=== PATIENT | female | born 1940 | race Hispanic/Latino ===

== ENCOUNTER → 2022-11-22 | Outpatient (CLI) | payer BC ==
[2022-11-22 16:38] LABS: ALBUMIN 3.1 g/dL (3.5-5.0); CREATININE 2.3 mg/dL (0.5-1.5); POTASSIUM 4.1 mmol/L (3.5-5.1); TOTAL PROTEIN, SERUM 6.9 g/dL (6.0-8.3)
== END | disposition home or self-care (01) ==
LOC: LAB 15:42
PROVIDERS: ATTEND Student in an Organized Health Care Education/Training Program
DX: I48.91 Unspecified atrial fibrillation (principal)
CPT/HCPCS: 36415; 80053

== ENCOUNTER → 2022-12-01 | Outpatient (CLI) | payer BC ==
[2022-12-01 11:35] LABS: CREATININE 2.1 mg/dL (0.5-1.5); POTASSIUM 3.7 mmol/L (3.5-5.1)
== END | disposition home or self-care (01) ==
LOC: LAB 08:40
PROVIDERS: ATTEND Student in an Organized Health Care Education/Training Program
DX: I10 Essential (primary) hypertension (principal)
CPT/HCPCS: 36415; 80048

== ENCOUNTER 2025-06-30 15:13 | Inpatient (IN) | payer BC ==
[~2025-06-30] VITALS: Ht 160 cm; Wt 61.2 kg
[2025-06-30 16:08] LABS: NUCLEATED RED BLOOD CELLS 0.0 % (0.0-0.19); PLATELET COUNT (AUTO) 157 K/uL (130-400); RED BLOOD CELL COUNT(AUTO) 2.24 MIL/uL (4.00-5.50); RED CELL DISTRIBUTION WIDTH 17.0 % (11.0-15.5); WHITE BLOOD COUNT (AUTO) 6.0 K/uL (4.8-10.8)
[2025-06-30 16:15] LABS: IMMATURE GRANULOCYTE ABSOLUTE 0.10 K/uL (0-1)
[2025-06-30 16:29] LABS: ASPARTATE AMINOTRANSFERASE 40.0 U/L (10-37); CREATININE 3.1 mg/dL (0.5-1.0); GLOMERULAR FILTR. RATE CALC 14.0 mL/min (>90); GLUCOSE,RANDOM 144.0 mg/dL (70-105); SODIUM SERUM 140.0 mmol/L (136-145); TOTAL PROTEIN, SERUM 6.5 g/dL (6.0-8.3); UREA NITROGEN, BLOOD 60.0 mg/dL (7-18)
[2025-06-30] MEDS: 0.9%NACL 1000ML 1,000 ML IV SCH (16:40)
[2025-06-30 16:44] LABS: BAND NEUTROPHILS % (MANUAL) 4 % (0-2); EOSINOPHILS % (MANUAL) 1 % (1-6); LYMPHOCYTES % (MANUAL) 11 % (22-44); MAN.DIFF COMMENT-IMPRESSION MANUAL DIFFERENTIAL; METAMYELOCYTES % 1 % (0-0); MONOCYTES % (MANUAL) 4 % (2-9); REACTIVE LYMPHOCYTES 3 % (0-0); SEGMENTED NEUTROPHILS % 76 % (40-70)
[2025-06-30] MEDS ORDERED: PoTASSium chl 10% ELIXIR 20MEQ 20 MEQ/15 ML UDCUP PO PRN (17:00)
--- NOTE | 2025-06-30 20:03 | HP ---
[facility] HISTORY & PHYSICAL Date Patient Seen: Jun 30, 2025 Time of Visit: 19:51 Supervising Physician: Dr. Semaj Pompa Primary Care Physician: Dr. Fiore Outpatient Specialists: [ ] Inpatient Consults: [ ] PROBLEM LIST: COVID positive, POA Community-acquired pneumonia, POA Hypertension, POA Chronic macrocytic anemia Hyperlipidemia, POA Acute kidney injury, POA Hypokalemia, POA DM type 2, with hyperglycemia POA History of left breast cancer PLAN: Admit to medical-surgical floor VS per unit protocol Start azithromycin Q 24 hours, continue ceftriaxone Treat fever aggressively DuoNeb q.6 Incentive spirometry Isolation precautions Avoid nephrotoxic agents Renally dose all medications Bilateral SCDs Obtain chest x-ray Check for COVID and flu Follow up culture results Keep SBP less than 160 Keep serum glucose less than 150 CBC, CMP, magnesium level daily HPI: 85-year-old female with past medical history of hypertension, pacemaker, CAD with angioplasty, hyperlipidemia, DM type 2 presented to ER [facility] here for evaluation of COVID pneumonia. Patient was seen and examined in ED with daughter present at bedside. Apparently patient has been feeling off and tired for the past several days. She initially pr esented to outside clinic where in she was advised to come to ED for further medical evaluation. In ED CBC was obtained and showed chronic macrocytic anemia, his chemistry significant for potassium level of 2.8, BUN of 60, and creatinine of 3.1. At present patient is currently hemodynamically stable, on room air with appropriate oxygen saturation, denies any headache, chest pain, fever, abdominal pain, diarrhea, or difficulty urinating. Patient is complaining of generalized body weakness and periodic cough. Patient denies any smoking, alcohol intake, or illicit drug use. At present patient is currently undergoing treatment for breast cancer. PAST MEDICAL HX: see above PAST SURGICAL HX: noncontributory SOCIAL HISTORY: No tobacco, ETOH, or illicit drug use Coded Allergies: No Known Allergies (Unverified Allergy, Unknown, 06/30/25) REVIEW OF SYSTEMS: 12 point ROS reviewed with patient. Pertinent positives mentioned above. Otherwise negative. PHYSICAL EXAM: GENERAL: alert, weak, awake oriented x 3 HEENT: EOMI, Sclera non icteric, moist mucosa NECK: Supple, no JVD, trachea midline LUNGS: Clear breath sounds bilaterally. No wheezes HEART: Regular rate and rhythm. Normal S1 and S2, without murmurs ABD: Abdomen soft, nontender. Bowel sounds present EXT: No clubbing cyanosis or edema NEURO: Alert and oriented to person, follows commands Vital Signs (last 8hr) Date Time Temp Pulse Resp B/P (MAP) Pulse Ox O2 Delivery O2 Flow Rate FiO2 06/30/25 18:17 99.5 67 18 129/52 99 Room Air* 0 21 06/30/25 16:05 99.0 66 18 128/52 98 Room Air* 0 21 06/30/25 15:17 99.0 84 16 117/62 99 Room Air 0 LABS: Hematology Labs: Test 06/30/25 16:00 Range/Units White Blood Count 6.0 4.8-10.8 K/uL Red Blood Count 2.24 L 4.00-5.50 MIL/uL Hemoglobin 9.4 L 12.0-16.0 g/dL Hematocrit 28.3 L 36-48 % Mean Corpuscular Volume 126.3 H 79-99 fL Mean Corpuscular Hemoglobin 42.0 H 27.0-33.0 pg Mean Corpuscular Hemoglobin Concent 33.2 32.0-36.0 g/dL Red Cell Distribution Width 17.0 H 11.0-15.5 % Platelet Count 157 130-400 K/uL Mean Platelet Volume 11.3 H 7.5-10.5 fL Immature Granulocyte % (Auto) 1.7 H 0-1 % Neutrophils (%) (Auto) 79.6 H 40.0-77.0 % Lymphocytes (%) (Auto) 12.4 L 21.0-51.0 % Monocytes (%) (Auto) 5.3 3.0-13.0 % Eosinophils (%) (Auto) 0.7 0.0-8.0 % Basophils (%) (Auto) 0.3 0.0-5.0 % Neutrophils # (Auto) 4.7 1.8-7.7 K/uL Lymphocytes # (Auto) 0.7 L 1.0-4.8 K/uL Monocytes # (Auto) 0.3 0.1-1.0 K/uL Eosinophils # (Auto) 0.04 0.00-0.70 K/uL Basophils # (Auto) 0.02 0.00-0.20 K/uL Absolute Immature Granulocyte (auto 0.10 0-1 K/uL Segmented Neutrophils % 76 H 40-70 % Band Neutrophils % 4 H 0-2 % Lymphocytes % (Manual) 11 L 22-44 % Monocytes % (Manual) 4 2-9 % Eosinophils % (Manual) 1 1-6 % Metamyelocytes % 1 H 0-0 % Nucleated Red Blood Cells 0.0 0.0-0.19 % Differential Comment MANUAL DIFFERENTIAL Reactive Lymphocytes 3 H 0-0 % White Cell Morphology Comment Platelet Morphology Comment Red Blood Cell Morphology See comments Chemistry Labs: Test 06/30/25 16:00 Range/Units Sodium Level 140 136-145 mmol/L Potassium Level 2.8 *L 3.5-5.1 mmol/L Chloride Level 101 101-111 mmol/L Carbon Dioxide Level 26 21-32 mmol/L Blood Urea Nitrogen 60 H 7-18 mg/dL Creatinine 3.1 H 0.5-1.0 mg/dL Glomerular Filtration Rate Calc 14 >90 mL/min Random Glucose 144 H 70-105 mg/dL Total Calcium 8.1 L 8.5-10.1 mg/dL Total Bilirubin 0.4 0.2-1.0 mg/dL Direct Bilirubin 0.2 0.0-0.3 mg/dL Aspartate Amino Transf (AST/SGOT) 40 H 10-37 U/L Alanine Aminotransferase (ALT/SGPT) 42 12-78 U/L Alkaline Phosphatase 111 50-136 U/L Total Protein 6.5 6.0-8.3 g/dL Albumin 3.0 L 3.5-5.0 g/dL DIAGNOSTICS / RADIOLOGY RESULTS: [ ] PLAN NEURO: Minimize central acting medications as possible. Maintain fall precautions, adequate lighting during the day PULMONARY: Supplemental 02 as needed. Maintain aspiration precautions at all times CARDIOVASCULAR: Follow hemodynamics. Vital signs per facility protocol GI & NUTRITION: Continue with nutritional support. Continue stool softeners and laxatives as needed. KIDNEYS & ELECTROLYTES: Strict monitoring of intake, output and overall fluid balance. Avoid nephrotoxic medications to the extent possible. Medications to be dosed according to renal function. Monitor electrolytes and replace as needed ENDOCRINE: Maintain blood glucose between 100-180 at all times. Hypoglycemia protocol in place INFECTIOUS DISEASE: Trend temperature, WBC and procalcitonin level Follow cultures, deescalate antibiotics as soon as possible. Panculture if new onset fever ONCOLOGY/HEMATOLOGY/COAGULATION: Monitor for s/s of bleeding Monitor hemoglobin, coagulation studies as needed SKIN: Pressure ulcer prevention per facility protocol Specialty mattress ORTHO/REHAB: Continue PT/OT Prophylaxis: Continue GI and DVT prophylaxis Code Status: Full Resuscitation Disposition: TBD Supervising physician: LUIGI Sherman APRN Jun 30, 2025 20:03
[2025-06-30] MEDS: AZITHROMYCIN 500MG+NS 250ML 250 ML IVPB SCH (20:40)
[2025-06-30] MEDS: PoTASSium chloRIDE 20MEQ ER 20 MEQ ERTAB PO PRN (20:41)
--- NOTE | 2025-06-30 20:45 | HMCIMG ---
EXAM: CR Chest, 1 View. CLINICAL HISTORY: sob COMPARISON: None provided. FINDINGS: LUNGS: The lungs show no infiltrate or other acute finding. PLEURAL SPACES: No pleural effusion or pneumothorax. MEDIASTINUM: AICD overlies the right ventricle. The cardiomediastinal silhouette is within normal limits. BONES: No acute osseous abnormality. IMPRESSION: No acute cardiopulmonary pathology is evident. /[place]
[2025-06-30 21:25] LABS: SARS-CoV-2, RNA, NAAT POSITIVE SARS CoV-2 (NEGATIVE)
[2025-06-30 21:27] LABS: INFLUENZA TYPE A Negative For Type A (NEGATIVE); INFLUENZA TYPE B Negative For Type B (NEGATIVE)
--- NOTE | 2025-06-30 22:33 | NUR ---
ASSISTED PT TO BEDSIDE TOILET BÁRBARA FITZGERALD NOTIFIED WILL NEED TO TRANSFER BACK TO BED PT REQUIRES MODERATE ASSIST GEN WEAKNESS POT FALL RISK
[2025-06-30 23:40] VITALS: BP 135/69; PULSE 71; RESP 18; TEMP 98.1
[2025-07-01] VITALS (7 sets, daily range): BP systolic 103–130; BP diastolic 48–62; PULSE 69–96; RESP 17–18; TEMP 97.4–98.3; O2SAT 98
[2025-07-01] MEDS ORDERED: FURO40TA5 PO (00:19)
[2025-07-01] MEDS ORDERED: VIT1TABL96 PO (00:19)
[2025-07-01] MEDS ORDERED: ATOR40TA69 PO (00:19)
[2025-07-01] MEDS ORDERED: LEVAQUIN PO (00:19)
[2025-07-01] MEDS ORDERED: CARV6.25 PO (00:19)
[2025-07-01] MEDS ORDERED: LEVO75CA6 PO (00:19)
[2025-07-01] MEDS ORDERED: APIX2.5T PO (00:19)
[2025-07-01] MEDS ORDERED: EMPA10TA PO (00:19)
[2025-07-01] MEDS ORDERED: AZIT250T9 PO (00:19)
[2025-07-01] MEDS ORDERED: ALLO100T PO (00:19)
[2025-07-01] MEDS: ENOXAPARIN SODIUM 40 MG/0.4 ML SYRINGE SQ SCH (10:36)
[2025-07-01] MEDS: ASCORBIC ACID 500 MG TAB PO SCH (10:37)
--- NOTE | 2025-07-01 10:38 | NUR ---
DCP: HOME Sw met with pt's son Ronny Fitch [phone]. Son lives with pt and states he is home 01/05. Son reports that prior to getting covid, pt remain active. She did chair exercises, walked in evening. Son states pt very weak. Discussed possible need for SNF, son refused, will take pt home at ok. Pt has a walker with seat and shower chair at home. No In home care services. PCP is Narcisa Fiore in [place] and uses [facility] for rx. Addendum: 07/01/25 at 1052 by JOHNNY COURTNEY Amended: Links added.
--- NOTE | 2025-07-01 10:47 | PN ---
[facility] PROGRESS NOTE Date Patient Seen: Jul 01, 2025 Time of Visit: 10:41 Supervising Physician: [Dr Simons Primary Care Physician: Dr. Fiore Outpatient Specialists: [ ] Inpatient Consults: [ BIS PROBLEM LIST: COVID positive, POA Community-acquired pneumonia, POA Hypertension, POA Chronic macrocytic anemia Hyperlipidemia, POA Acute kidney injury, POA Hypokalemia, POA DM type 2, with hyperglycemia POA History of left breast cancer PLAN SUMMARY: Supplemental oxygen as needed-patient currently on room air Continue Rocephin Continue azithromycin Duo nebs as needed IS while awake PT evaluate and treat Out of bed to chair and ambulate Dispo: as per attending INTERVAL HISTORY: 85-year-old female with past medical history of hypertension, pacemaker, CAD with angioplasty, hyperlipidemia, DM type 2 presented to ER from [facility] here for evaluation of COVID pneumonia. Patient was seen and examined in ED with daughter present at bedside. Apparently patient has been feeling off and tired for the past several days. She initially presented to outside clinic where in she was advised to come to ED for further medical evaluation. In ED CBC was obtained and showed chronic macrocytic anemia, his chemistry signi ficant for potassium level of 2.8, BUN of 60, and creatinine of 3.1. At present patient is currently hemodynamically stable, on room air with appropriate oxygen saturation, denies any headache, chest pain, fever, abdominal pain, diarrhea, or difficulty urinating. Patient is complaining of generalized body weakness and periodic cough. Patient denies any smoking, alcohol intake, or illicit drug use. At present patient is currently undergoing treatment for breast cancer. 07/01 - patient is seen sitting up in bed accompanied by her son. Patient appears to be weak and deconditioned however patient reports feeling much improved in comparison to yesterday. Patient denies any dyspnea as she is currently on room air. Son reports patient continues to be very weak requiring moderate assistance to ambulate to the bathroom this morning. No acute changes reported overnight. Patient continue with low-grade temperatures yesterday evening. Labs show patient with hypokalemia which is being replaced via protocol. Patient continues with worsening renal dysfunction as today's labs show creatinine of 3.1. Patient's baseline creatinine is 2.1. Recommend continuing broad-spectrum antibiotics for now. Request a 6 minute walk test for home O2 eval prior to discharge. REVIEW OF SYSTEMS: 12 point ROS reviewed with patient. Pertinent positives mentioned above. Otherwise negative. PHYSICAL EXAM: GENERAL: alert, weak, awake oriented x 3 HEENT: EOMI, Sclera non icteric, moist mucosa NECK: Supple, no JVD, trachea midline LUNGS: Clear breath sounds bilaterally. No wheezes HEART: Regular rate and rhythm. Normal S1 and S2, without murmurs ABD: Abdomen soft, nontender. Bowel sounds present EXT: No clubbing cyanosis or edema NEURO: Alert and oriented to person, follows commands Vital Signs (last 8hr) Date Time Temp Pulse Resp B/P (MAP) Pulse Ox O2 Delivery O2 Flow Rate FiO2 07/01/25 08:07 98.2 96 17 103/48 98 Room Air 07/01/25 04:01 97.3 69 18 113/62 98 Room Air 21 LABS: Hematology Labs: Test 06/30/25 16:00 Range/Units White Blood Count 6.0 4.8-10.8 K/uL Red Blood Count 2.24 L 4.00-5.50 MIL/uL Hemoglobin 9.4 L 12.0-16.0 g/dL Hematocrit 28.3 L 36-48 % Mean Corpuscular Volume 126.3 H 79-99 fL Mean Corpuscular Hemoglobin 42.0 H 27.0-33.0 pg Mean Corpuscular Hemoglobin Concent 33.2 32.0-36.0 g/dL Red Cell Distribution Width 17.0 H 11.0-15.5 % Platelet Count 157 130-400 K/uL Mean Platelet Volume 11.3 H 7.5-10.5 fL Immature Granulocyte % (Auto) 1.7 H 0-1 % Neutrophils (%) (Auto) 79.6 H 40.0-77.0 % Lymphocytes (%) (Auto) 12.4 L 21.0-51.0 % Monocytes (%) (Auto) 5.3 3.0-13.0 % Eosinophils (%) (Auto) 0.7 0.0-8.0 % Basophils (%) (Auto) 0.3 0.0-5.0 % Neutrophils # (Auto) 4.7 1.8-7.7 K/uL Lymphocytes # (Auto) 0.7 L 1.0-4.8 K/uL Monocytes # (Auto) 0.3 0.1-1.0 K/uL Eosinophils # (Auto) 0.04 0.00-0.70 K/uL Basophils # (Auto) 0.02 0.00-0.20 K/uL Absolute Immature Granulocyte (auto 0.10 0-1 K/uL Segmented Neutrophils % 76 H 40-70 % Band Neutrophils % 4 H 0-2 % Lymphocytes % (Manual) 11 L 22-44 % Monocytes % (Manual) 4 2-9 % Eosinophils % (Manual) 1 1-6 % Metamyelocytes % 1 H 0-0 % Nucleated Red Blood Cells 0.0 0.0-0.19 % Differential Comment MANUAL DIFFERENTIAL Reactive Lymphocytes 3 H 0-0 % White Cell Morphology Comment Platelet Morphology Comment Red Blood Cell Morphology See comments Chemistry Labs: Test 07/01/25 05:28 07/01/25 03:54 06/30/25 16:00 Range/Units Whole Blood Glucose 122 H 70-110 MG/DL Potassium Level 3.0 *L 3.5-5.1 mmol/L Sodium Level 140 136-145 mmol/L Chloride Level 101 101-111 mmol/L Carbon Dioxide Level 26 21-32 mmol/L Blood Urea Nitrogen 60 H 7-18 mg/dL Creatinine 3.1 H 0.5-1.0 mg/dL Glomerular Filtration Rate Calc 14 >90 mL/min Random Glucose 144 H 70-105 mg/dL Total Calcium 8.1 L 8.5-10.1 mg/dL Total Bilirubin 0.4 0.2-1.0 mg/dL Direct Bilirubin 0.2 0.0-0.3 mg/dL Aspartate Amino Transf (AST/SGOT) 40 H 10-37 U/L Alanine Aminotransferase (ALT/SGPT) 42 12-78 U/L Alkaline Phosphatase 111 50-136 U/L Total Protein 6.5 6.0-8.3 g/dL Albumin 3.0 L 3.5-5.0 g/dL DIAGNOSTICS / RADIOLOGY RESULTS: Signed PATIENT: CRYSTAL COTA MR#: [id number] : 1940 SEX: F AGE: 85 LOCATION: [facility] ORDER 53 STATUS: ADM IN REPORT#: [id number] SERVICE 50 REASON: sob ORDERING PHYSICIAN: LUIGI NELSON ROASTMASTER PROCEDURE: CXR1VW - CHEST 1VW EXAM: CR Chest, 1 View. CLINICAL HISTORY: sob COMPARISON: None provided. FINDINGS: LUNGS: The lungs show no infiltrate or other acute finding. PLEURAL SPACES: No pleural effusion or pneumothorax. MEDIASTINUM: AICD overlies the right ventricle. The cardiomediastinal silhouette is within normal limits. BONES: No acute osseous abnormality. IMPRESSION: No acute cardiopulmonary pathology is evident. /[place] DICTATED BY: LJ BLACKMON Jr., MD DATE: 06/30/252144 ELECTRONICALLY SIGNED BY: LJ BLACKMON Jr., MD DATE: 06/30/252144 PLAN NEURO: Minimize central acting medications as possible. Maintain fall precautions, adequate lighting during the day PULMONARY: Supplemental 02 as needed. Maintain aspiration precautions at all times CARDIOVASCULAR: Follow hemodynamics. Vital signs per facility protocol GI & NUTRITION: Continue with nutritional support. Continue stool softeners and laxatives as needed. KIDNEYS & ELECTROLYTES: Strict monitoring of intake, output and overall fluid balance. Avoid nephrotoxic medications to the extent possible. Medications to be dosed according to renal function. Monitor electrolytes and replace as needed ENDOCRINE: Maintain blood glucose between 100-180 at all times. Hypoglycemia protocol in place INFECTIOUS DISEASE: Trend temperature, WBC and procalcitonin level Follow cultures, deescalate antibiotics as soon as possible. Panculture if new onset fever ONCOLOGY/HEMATOLOGY/COAGULATION: Monitor for s/s of bleeding Monitor hemoglobin, coagulation studies as needed SKIN: Pressure ulcer prevention per facility protocol Specialty mattress ORTHO/REHAB: Continue PT/OT Prophylaxis: Continue GI and DVT prophylaxis Code Status: Full Resuscitation Disposition: As per attending. ATTESTATION BY PHYSICIAN I have seen and examined the patient. I reviewed the documentation, medical decision making, and treatment plan as noted by the mid-level provider above. I agree with the findings and plan of care. Fe Simons MD, ECTOR N NP Jul 01, 2025 10:47
--- NOTE | 2025-07-01 21:15 | HP ---
ADMITTING DIAGNOSIS: COVID and pneumonia. HISTORY OF PRESENT ILLNESS: An 85-year-old woman. I take care of her metastatic stage 4 breast cancer, on hormonal therapy. She developed COVID a few days ago and came in because of increasing respiratory distress. She was found to have community-acquired pneumonia and was admitted for the same. PAST MEDICAL HISTORY: History of stage 4 metastatic breast cancer as noted above. She has had type 2 diabetes, hyperlipidemia, coronary artery disease, pacemaker, hypertension. PAST SURGICAL HISTORY: She has had a heart cath, pacemaker, breast biopsy. Otherwise per my extensive prior records. MEDICATIONS: See intake sheet. ALLERGIES: No drug allergies. FAMILY HISTORY: Negative for breast cancer. SOCIAL HISTORY: She is independent. Her son looks after her, but very active. REVIEW OF SYSTEMS: HEENT: Negative. CARDIOVASCULAR: Negative for chest pain, palpitations, PND. PULMONARY: Cough. GASTROINTESTINAL: Negative for bowel sounds. GENITOURINARY: Negative for hematuria or dysuria. PHYSICAL EXAMINATION: GENERAL: Elderly pleasant woman. VITAL SIGNS: Blood pressure 117/62, pulse 84, respirations 16, temperature 99. HEENT: Benign. NECK: Supple without adenopathy or bruit. CHEST: Showed decreased breath sounds bilaterally. No rales, rhonchi, or wheezing. HEART: Regular rate and rhythm. ABDOMEN: Soft. EXTREMITIES: No edema. NEUROLOGIC: Awake and oriented. LABORATORY DATA: Lab reviewed. CBC 6.9, platelets 157. Chest x-ray is negative. IMPRESSION: 1. COVID infection. 2. Community-acquired pneumonia. 3. Hypertension. 4. Anemia. 5. Metastatic breast cancer, stage 4. 6. Immunocompromised. 7. Hyperlipidemia. 8. Coronary artery disease. 9. Pacemaker. 10. Diabetes. PLAN: Panculture, broad-spectrum antibiotics with Rocephin 1 gram IV q.24 hours and Zithromax 500 q.24 hours. DuoNebs by nebulizer q.4. Oxygen as needed. SCDs. Monitor lab, electrolytes. We will consult [facility] for support. TID: [id number] RECEIPT: [id number]
[2025-07-02] VITALS: BP 146/73; PULSE 63; RESP 17; TEMP 97.7
--- NOTE | 2025-07-02 03:23 | NUR ---
nurse note patient alert and oriented times 3. son, miley at bedside. plan of care discussed with them and they verbalized understanding. patient has no pain tonight. she gets up to the bedside commode and had a bowel movement tonight. she has slept about 6 hours tonight. call light within reach, bed alarm on, 2 side rails up. will continue to monitor patient.
[2025-07-02 04:00] VITALS: BP 143/74; PULSE 63; RESP 17; TEMP 97.8
[2025-07-02 04:03] LABS: ABG BASE EXCESS -3.5 mmol/L (-2.0-3.0); ABG HCO3 19.3 mmol/L (21.0-28.0); ABG OXYGEN SATURATION 97.7 % (94.0-98.0); ABG PCO2 29 mmHg (32-45); ABG PH 7.440 (7.350-7.450); DEVICE COMMENT RN, RB; PO2, ARTERIAL BG 97.8 mmHg (83.0-108.0); TEMPERATURE, CELSIUS BG 37.0 CELSIUS (35.5-37.0); VENT MODE, BG RA (ROOM AIR)
[2025-07-02 04:36] LABS: NUCLEATED RED BLOOD CELLS 0.0 % (0.0-0.19); PLATELET COUNT (AUTO) 139.0 K/uL (130-400); RED BLOOD CELL COUNT(AUTO) 2.06 MIL/uL (4.00-5.50); RED CELL DISTRIBUTION WIDTH 16.4 % (11.0-15.5); WHITE BLOOD COUNT (AUTO) 3.6 K/uL (4.8-10.8)
[2025-07-02 04:51] LABS: CREATININE 2.4 mg/dL (0.5-1.0); GLOMERULAR FILTR. RATE CALC 19.0 mL/min (>90); GLUCOSE,RANDOM 127.0 mg/dL (70-105); PHOSPHORUS 3.3 mg/dL (2.5-4.9); SODIUM SERUM 142.0 mmol/L (136-145); UREA NITROGEN, BLOOD 46.0 mg/dL (7-18)
--- NOTE | 2025-07-02 07:00 | NUR ---
PROVIDER ON UNIT DR. DUENAS ON UNIT. PER MD PATIENT CAN D/C HOME. CIRCUS TRAIN SUPERVISOR AMARJIT TO D/C PATIENT.
--- NOTE | 2025-07-02 07:59 | PN ---
SUBJECTIVE: The patient is doing well. She is awake, alert. No fever, chills, or other complaints. She is ambulatory. Son is at the bedside. REVIEW OF SYSTEMS: Negative. PHYSICAL EXAMINATION: GENERAL: Shows a pleasant woman. VITAL SIGNS: Blood pressure 143/74, pulse 63, and respirations 17. HEENT: Benign. CHEST: Clear and soft. EXTREMITIES: Show no edema. NEUROLOGIC: Alert and oriented. IMPRESSION: 1. COVID infection. 2. Community-acquired pneumonia. 3. Hypertension. 4. Anemia. 5. Metastatic breast cancer stage 4. 6. Diabetes. 7. Chronic renal failure. PLAN: Continue medical management. Six-minute walk to see if she needs oxygen. The patient is otherwise stable. TID: [id number] RECEIPT: [id number]
[2025-07-02 08:00] VITALS: BP 142/88; PULSE 63; RESP 18; TEMP 98.7
--- NOTE | 2025-07-02 08:10 | NUR ---
discharge discharge instructions given to the patient. she verbalized understanding. iv catheter removed, tip intact. patient eating her breakfast, will dress up, and her son will come and pick her up.
--- NOTE | 2025-07-02 10:13 | NUR ---
PATIENT TRANSPORT HERE PATIENT D/C TO HOME. PATIENT RIDE HERE. PATIENT TAKEN DOWN BY WHEELCHAIR.
--- NOTE | 2025-07-02 10:45 | PN ---
[facility] PROGRESS NOTE Date Patient Seen: Jul 02, 2025 Time of Visit: 10:43 Supervising Physician: [Dr Simons Primary Care Physician: Dr. Fiore Outpatient Specialists: [ ] Inpatient Consults: [ BIS PROBLEM LIST: COVID positive, POA Community-acquired pneumonia, POA Hypertension, POA Chronic macrocytic anemia Hyperlipidemia, POA Acute kidney injury, POA Hypokalemia, POA DM type 2, with hyperglycemia POA History of left breast cancer PLAN SUMMARY: Supplemental oxygen as needed-patient currently on room air Continue Rocephin Continue azithromycin Duo nebs as needed IS while awake PT evaluate and treat Out of bed to chair and ambulate Dispo: as per attending INTERVAL HISTORY: 85-year-old female with past medical history of hypertension, pacemaker, CAD with angioplasty, hyperlipidemia, DM type [address] ER [address] [facility] here for evaluation of COVID pneumonia. Patient was seen and examined in ED with daughter present at bedside. Apparently patient has been feeling off and tired for the past several days. She initially presented to outside clinic where in she was advised to come to ED for further medical evaluation. In ED CBC was obtained and showed chronic macrocytic anemia, his chemistry sign ificant for potassium level of 2.8, BUN of 60, and creatinine of 3.1. At present patient is currently hemodynamically stable, on room air with appropriate oxygen saturation, denies any headache, chest pain, fever, abdominal pain, diarrhea, or difficulty urinating. Patient is complaining of generalized body weakness and periodic cough. Patient denies any smoking, alcohol intake, or illicit drug use. At present patient is currently undergoing treatment for breast cancer. 07/01 - patient is seen sitting up in bed accompanied by her son. Patient appears to be weak and deconditioned however patient reports feeling much improved in comparison to yesterday. Patient denies any dyspnea as she is currently on room air. Son reports patient continues to be very weak requiring moderate assistance to ambulate to the bathroom this morning. No acute changes reported overnight. Patient continue with low-grade temperatures yesterday evening. Labs show patient with hypokalemia which is being replaced via protocol. Patient continues with worsening renal dysfunction as today's labs show creatinine of 3.1. Patient's baseline creatinine is 2.1. Recommend continuing broad-spectrum antibiotics for now. Request a 6 minute walk test for home O2 eval prior to discharge. 07/02 - patient is seen sitting up in bed with no signs of acute distress. Patient remains on room air denies chest discomfort, chest pain or dyspnea with exertion. Patient reports feeling back to baseline. No acute changes reported overnight. Vital signs are stable. Labs are within normal limits. Patient had a 6 minute walk test and passed. Patient's renal function returned back to baseline. From a pulmonary standpoint, patient may be discharged home. REVIEW OF SYSTEMS: 12 point ROS reviewed with patient. Pertinent positives mentioned above. Otherwise negative. PHYSICAL EXAM: GENERAL: alert, weak, awake oriented x 3 HEENT: EOMI, Sclera non icteric, moist mucosa NECK: Supple, no JVD, trachea midline LUNGS: Clear breath sounds bilaterally. No wheezes HEART: Regular rate and rhythm. Normal S1 and S2, without murmurs ABD: Abdomen soft, nontender. Bowel sounds present EXT: No clubbing cyanosis or edema NEURO: Alert and oriented to person, follows commands Vital Signs (last 8hr) Date Time Temp Pulse Resp B/P (MAP) Pulse Ox O2 Delivery O2 Flow Rate FiO2 07/02/25 08:00 98.8 63 18 142/88 99 Room Air 07/02/25 04:00 97.9 63 17 143/74 98 Room Air LABS: Hematology Labs: Test 07/02/25 04:21 06/30/25 16:00 Range/Units White Blood Count 3.6 L 4.8-10.8 K/uL Red Blood Count 2.06 L 4.00-5.50 MIL/uL Hemoglobin 8.6 L 12.0-16.0 g/dL Hematocrit 26.0 L 36-48 % Mean Corpuscular Volume 126.2 H 79-99 fL Mean Corpuscular Hemoglobin 41.7 H 27.0-33.0 pg Mean Corpuscular Hemoglobin Concent 33.1 32.0-36.0 g/dL Red Cell Distribution Width 16.4 H 11.0-15.5 % Platelet Count 139 130-400 K/uL Mean Platelet Volume 11.6 H 7.5-10.5 fL Nucleated Red Blood Cells 0.0 0.0-0.19 % Immature Granulocyte % (Auto) 1.7 H 0-1 % Neutrophils (%) (Auto) 79.6 H 40.0-77.0 % Lymphocytes (%) (Auto) 12.4 L 21.0-51.0 % Monocytes (%) (Auto) 5.3 3.0-13.0 % Eosinophils (%) (Auto) 0.7 0.0-8.0 % Basophils (%) (Auto) 0.3 0.0-5.0 % Neutrophils # (Auto) 4.7 1.8-7.7 K/uL Lymphocytes # (Auto) 0.7 L 1.0-4.8 K/uL Monocytes # (Auto) 0.3 0.1-1.0 K/uL Eosinophils # (Auto) 0.04 0.00-0.70 K/uL Basophils # (Auto) 0.02 0.00-0.20 K/uL Absolute Immature Granulocyte (auto 0.10 0-1 K/uL Segmented Neutrophils % 76 H 40-70 % Band Neutrophils % 4 H 0-2 % Lymphocytes % (Manual) 11 L 22-44 % Monocytes % (Manual) 4 2-9 % Eosinophils % (Manual) 1 1-6 % Metamyelocytes % 1 H 0-0 % Differential Comment MANUAL DIFFERENTIAL Reactive Lymphocytes 3 H 0-0 % White Cell Morphology Comment Platelet Morphology Comment Red Blood Cell Morphology See comments Chemistry Labs: Test 07/02/25 05:44 07/02/25 04:21 06/30/25 16:00 Range/Units Whole Blood Glucose 128 H 70-110 MG/DL Sodium Level 142 136-145 mmol/L Potassium Level 3.9 3.5-5.1 mmol/L Chloride Level 110 101-111 mmol/L Carbon Dioxide Level 23 21-32 mmol/L Blood Urea Nitrogen 46 H 7-18 mg/dL Creatinine 2.4 H 0.5-1.0 mg/dL Glomerular Filtration Rate Calc 19 >90 mL/min Random Glucose 127 H 70-105 mg/dL Total Calcium 7.7 L 8.5-10.1 mg/dL Phosphorus Level 3.3 2.5-4.9 mg/dL Magnesium Level 1.90 1.80-2.40 mg/dL Procalcitonin < 0.05 L 0.05-0.5 ng/mL Total Bilirubin 0.4 0.2-1.0 mg/dL Direct Bilirubin 0.2 0.0-0.3 mg/dL Aspartate Amino Transf (AST/SGOT) 40 H 10-37 U/L Alanine Aminotransferase (ALT/SGPT) 42 12-78 U/L Alkaline Phosphatase 111 50-136 U/L Total Protein 6.5 6.0-8.3 g/dL Albumin 3.0 L 3.5-5.0 g/dL DIAGNOSTICS / RADIOLOGY RESULTS: [ ] PLAN NEURO: Minimize central acting medications as possible. Maintain fall precautions, adequate lighting during the day PULMONARY: Supplemental 02 as needed. Maintain aspiration precautions at all times CARDIOVASCULAR: Follow hemodynamics. Vital signs per facility protocol GI & NUTRITION: Continue with nutritional support. Continue stool softeners and laxatives as needed. KIDNEYS & ELECTROLYTES: Strict monitoring of intake, output and overall fluid balance. Avoid nephrotoxic medications to the extent possible. Medications to be dosed according to renal function. Monitor electrolytes and replace as needed ENDOCRINE: Maintain blood glucose between 100-180 at all times. Hypoglycemia protocol in place INFECTIOUS DISEASE: Trend temperature, WBC and procalcitonin level Follow cultures, deescalate antibiotics as soon as possible. Panculture if new onset fever ONCOLOGY/HEMATOLOGY/COAGULATION: Monitor for s/s of bleeding Monitor hemoglobin, coagulation studies as needed SKIN: Pressure ulcer prevention per facility protocol Specialty mattress ORTHO/REHAB: Continue PT/OT Prophylaxis: Continue GI and DVT prophylaxis Code Status: Full Resuscitation Disposition: As per attending. ATTESTATION BY PHYSICIAN I have seen and examined the patient. I reviewed the documentation, medical decision making, and treatment plan as noted by the mid-level provider above. I agree with the findings and plan of care. Fe Simons MD, ECTOR N NP Jul 02, 2025 10:45
== END 2025-07-02 10:15 | disposition home or self-care (01) | DRG 177 ==
LOC: EDH 15:13 → EDHIP 15:44 → 4CH 23:11
PROVIDERS: ADMIT Internal Medicine Hematology & Oncology; ATTEND Internal Medicine Hematology & Oncology
DX: U07.1 COVID-19 (principal); J12.82 Pneumonia due to coronavirus disease 2019; N17.9 Acute kidney failure, unspecified; D84.9 Immunodeficiency, unspecified; E87.6 Hypokalemia; E78.5 Hyperlipidemia, unspecified; I10 Essential (primary) hypertension; D53.9 Nutritional anemia, unspecified; E11.65 Type 2 diabetes mellitus with hyperglycemia; I25.10 Atherosclerotic heart disease of native coronary artery without angina pectoris; C50.919 Malignant neoplasm of unspecified site of unspecified female breast; E11.22 Type 2 diabetes mellitus with diabetic chronic kidney disease; I12.9 Hypertensive chronic kidney disease with stage 1 through stage 4 chronic kidney disease, or unspecified chronic kidney disease; N18.9 Chronic kidney disease, unspecified; Z78.9 Other specified health status; Z85.3 Personal history of malignant neoplasm of breast; Z95.0 Presence of cardiac pacemaker
CPT/HCPCS: 36415; 36600; 71045; 80048; 80053; 80076; 82803; 82948; 83735; 84100; 84132; 84145; 85025; 85027; 87040; 87635; 87804; 99285; G0378; J0456; J0696; J1650; J2470; J3480